=== PATIENT | male | born 1940 | race African-American/Black ===

== ENCOUNTER 2018-09-08 09:58 | Day surgery (SDC) | payer OTHER ==
[2018-09-01 15:55] VITALS: BMI 18.7
[2018-09-08] MEDS ORDERED: PROPOFOL 20 ML ONE (11:05)
[2018-09-08] MEDS ORDERED: LIDOCAINE HCL/PF 2% SDV 5ML VIAL ONE (11:05)
[2018-09-08 11:43] VITALS: PULSE 67
[2018-09-08 12:01] VITALS: BP 139/71; TEMP 98
--- NOTE | 2018-09-10 11:57 | PATH ---
Surgical Pathology Report Patient Name: AISHA BAILEY [facility]. Rec. #: [id number] /Age/Gender: 1940 (Age: 77) / M Account: [id number] Location: [facility] AMBULATORY Taken: 09/08/2018 Received: 09/08/2018 Reported: 09/10/2018 Physicians: Lara Caruso M.D. Specimen(s) Received A: SECOND PORTION DUODENUM THICKENED FOLD B: ANTRUM C: GE JUNCTION Clinical History Anemia Postoperative diagnosis: Thickened duodenal fold, gastritis, duodenitis, hiatal hernia Final Diagnosis A. DUODENUM, SECOND PART AND BULB, BIOPSY: DUODENAL MUCOSA WITH MILD NONSPECIFIC CHRONIC INFLAMMATION. NO ADENOMATOUS CHANGE IDENTIFIED. NO HISTOLOGIC EVIDENCE OF GLUTEN SENSITIVE ENTEROPATHY (CELIAC SPRUE) IDENTIFIED. B. STOMACH, ANTRUM, BIOPSY: GASTRIC MUCOSA WITH NO PATHOLOGIC CHANGES. IMMUNOSTAIN FOR H. PYLORI IS NEGATIVE. C. GE JUNCTION, BIOPSY: GASTRIC TYPE MUCOSA WITH CHRONIC INFLAMMATION AND HYPERPLASTIC CHANGES. NO INTESTINAL METAPLASIA IDENTIFIED (NO BAUTISTA'S IDENTIFIED). Electronically Signed Les Andres M.D. Gross Description A. Received in formalin, labeled "biopsy second portion of duodenum thickened fold" is a grubbs, irregular portion of soft tissue measuring 0.3 cm. in greatest dimension. The specimen is submitted in toto in one cassette. B. Received in formalin, labeled "biopsy gastric antrum" is a grubbs, irregular portion of soft tissue measuring 0.4 cm. in greatest dimension. The specimen is submitted in toto in one cassette. C. Received in formalin, labeled "biopsy GE junction" is a grubbs, irregular portion of soft tissue measuring 0.4 cm. in greatest dimension. The specimen is submitted in toto in one cassette. 09/09/2018 saudi09/09/2018
== END 2018-09-08 12:07 ==
LOC: FASU 09:58
PROVIDERS: ATTEND Internal Medicine Gastroenterology
PROC: 0DB68ZX Excision of Stomach, Via Natural or Artificial Opening Endoscopic, Diagnostic (ICD-10-PCS; 2018-09-08)
PROC: 0DB48ZX Excision of Esophagogastric Junction, Via Natural or Artificial Opening Endoscopic, Diagnostic (ICD-10-PCS; 2018-09-08)
PROC: 0DB98ZX Excision of Duodenum, Via Natural or Artificial Opening Endoscopic, Diagnostic (ICD-10-PCS; principal; 2018-09-08 11:08)
DX: D64.9 Anemia, unspecified (principal); K44.9 Diaphragmatic hernia without obstruction or gangrene
CPT/HCPCS: 88305-TC; 88342-TC

== ENCOUNTER 2018-10-27 09:35 | Day surgery (SDC) | payer OTHER ==
[2018-10-21 11:32] VITALS: BMI 20.4
[2018-10-27] MEDS ORDERED: PROPOFOL 20 ML ONE ×2 (09:41)
[2018-10-27] MEDS ORDERED: LIDOCAINE HCL/PF 2% SDV 5ML VIAL ONE (09:41)
[2018-10-27 10:08] VITALS: TEMP 98.2
[2018-10-27 12:07] VITALS: BP 144/89; PULSE 61
== END 2018-10-27 12:15 | disposition home or self-care (01) ==
LOC: FASU-ENDO 09:35
PROVIDERS: ATTEND Internal Medicine Gastroenterology
PROC: 0DJD8ZZ Inspection of Lower Intestinal Tract, Via Natural or Artificial Opening Endoscopic (ICD-10-PCS; principal; 2018-10-27 10:56)
DX: D64.9 Anemia, unspecified (principal); K64.1 Second degree hemorrhoids